=== PATIENT | male | born 1945 | race Caucasian/White ===

== ENCOUNTER → 2017-10-30 | Outpatient (CLI) | payer MEDICARE, OTHER ==
[~2017-10-30] MED LIST: DIOVAN320 MG PO; HCTZ 25MG25 MG PO; LOTREL 10 MG-201 CAP PO; NORCO 325 MG-51 TAB PO; NORVASC 10MG10 MG PO; OMEGA-3 1000 MG1 CAP PO; ZYLOPRIM 300MG300 MG PO
== END ==
LOC: COL.RAD 12:13
DX: R27.0 Ataxia, unspecified (principal)

== ENCOUNTER 2018-03-09 06:54 | Day surgery (SDC) | payer MEDICARE, OTHER ==
[~2018-03-09] VITALS: Ht 175.3 cm; Wt 98.0 kg
[2018-03-09 07:45] VITALS: BP 147/88; PULSE 61; TEMP 98
[2018-03-09 08:18] LABS: BASO # 0.2 (0.0-0.2); BASO % 1.2 % (0.0-2.0); EOS # 0.3 (0.0-0.7); EOS % 1.8 % (0-4.0); GRAN # 16.4 (1.4-6.5); LYMPH # 1.6 (1.2-3.4); LYMPH % 8.1 % (20.0-51.0); MEAN CELL VOLUME 97 fl (80.0-100.0); MEAN CORPUSCULAR HGB CONC 33 g/dl (33.0-37.0); MEAN PLATELET VOLUME 11.3 fl (7.4-10.4); MONO # 0.6 (0.1-0.6); PLATELET COUNT 383 K/mm3 (130-400); RED BLOOD COUNT 6.02 M/mm3 (4.20-5.60); REDCELL DISTRIBUTION WIDTH-CV 15.3 % (11.5-14.5)
[2018-03-09 08:29] LABS: HEMATOCRIT 58.5 % (42.0-52.0); HEMOGLOBIN 19.3 g/dl (13.5-18.0); MEAN CORPUSCULAR HEMOGLOBIN 32 pg (27.0-31.0)
[2018-03-09] MEDS ORDERED: ASPIRIN E.C. 8181 MG PO (08:45)
[2018-03-09] MEDS ORDERED: HYDROXYURE500 MG/CAP PO (08:48)
[2018-03-09] MEDS ORDERED: HCTZ 25MG TAB25 MG PO (08:48)
[2018-03-09 09:45] VITALS: BP 134/75; PULSE 59
[2018-03-09 10:00] VITALS: BP 127/78; PULSE 57; TEMP 96.9
[2018-03-09 10:15] VITALS: BP 123/74; PULSE 58
[2018-03-09 13:31] VITALS: BP 120/80; PULSE 72
== END 2018-03-09 10:35 | disposition home or self-care (01) ==
LOC: SDCO 06:54
PROVIDERS: Family Medicine
DX: C94.6 Myelodysplastic disease, not elsewhere classified (principal); D45 Polycythemia vera; I10 Essential (primary) hypertension; M10.9 Gout, unspecified; Z87.442 Personal history of urinary calculi; Z80.3 Family history of malignant neoplasm of breast; Z79.899 Other long term (current) drug therapy; Z79.82 Long term (current) use of aspirin
CPT/HCPCS: J2704; J7120

== ENCOUNTER → 2018-04-06 | Outpatient (REF) ==
[~2018-04-06] MED LIST changes: +ASPIRIN E.C. 8181 MG PO; +HCTZ 25MG TAB25 MG PO; +HYDROXYURE500 MG/CAP PO
== END ==
LOC: ZLAB.WCH 16:12
DX: Z01.89 Encounter for other specified special examinations (principal)

== ENCOUNTER 2019-06-27 22:28 | Emergency (ER) | payer MEDICARE, OTHER ==
[~2019-06-27] VITALS: Ht 175.3 cm; Wt 95.5 kg
[2019-06-27 23:08] LABS: BASO # 0.1 (0.0-0.2); BASO % 1.1 % (0.0-2.0); EOS # 0.2 (0.0-0.7); EOS % 1.2 % (0-4.0); GRAN # 9.7 (1.4-6.5); GRAN % 79.2 % (42.2-75.2); HEMATOCRIT 41.1 % (42.0-52.0); HEMOGLOBIN 14.4 g/dl (13.5-18.0); LYMPH # 1.7 (1.2-3.4); LYMPH % 13.9 % (20.0-51.0); MEAN CELL VOLUME 112 fl (80.0-100.0); MEAN CORPUSCULAR HEMOGLOBIN 39 pg (27.0-31.0); MEAN CORPUSCULAR HGB CONC 35 g/dl (33.0-37.0); MEAN PLATELET VOLUME 11.5 fl (7.4-10.4); MONO # 0.5 (0.1-0.6); MONO % 4.1 % (1.7-9.3); PLATELET COUNT 191 K/mm3 (130-400); RED BLOOD COUNT 3.68 M/mm3 (4.20-5.60)
[2019-06-27 23:14] LABS: INR 1.1 (0.8-3.0); PROTHROMBIN TIME 12.5 SECONDS (9.7-12.8)
[2019-06-27 23:16] LABS: PARTIAL THROMBOPLASTIN TIME 30.4 SECONDS (26.0-37.0)
[2019-06-27 23:17] LABS: CALCIUM 9.2 mg/dL (8.4-10.2); CREATININE, serum 1.04 (0.66-1.25); POTASSIUM 3.8 mmol/L (3.4-5.0)
[2019-06-27] MEDS ORDERED: CEPHALEXIN500 M1 PO (23:48)
[2019-06-28 00:40] VITALS: BP 142/77; PULSE 80; TEMP 98.6
== END 2019-06-28 00:42 | disposition home or self-care (01) ==
LOC: COL.ER 22:28
PROVIDERS: Emergency Medicine
DX: R04.0 Epistaxis (principal); I10 Essential (primary) hypertension; D45 Polycythemia vera; Z79.82 Long term (current) use of aspirin

== ENCOUNTER 2023-06-06 05:20 | Day surgery (SDC) | payer MEDICARE, OTHER ==
[~2023-06-06] VITALS: Ht 177.8 cm; Wt 98.0 kg
[~2023-06-06 05:20] MED LIST changes: +CEPHALEXIN500 M1 PO; +Ondansetron 4 MG/2 ML VIAL IV PRN
[2023-06-06] MEDS ORDERED: DOXYCYCLINE 10100 MG PO (05:49)
[2023-06-06] MEDS ORDERED: MICARDIS HCT 251 TAB PO (05:50)
[2023-06-06] MEDS ORDERED: LR 1,000 ML IV SCH (06:00)
[2023-06-06 06:07] VITALS: BP 132/71; PULSE 62; TEMP 97.1
--- NOTE | 2023-06-06 06:20 | NUR ---
Pt arrived with , states bowels are WNL, VSS, BG 166; consents reveiwed and signed, no questions/concerns; PIV 22G to LH after x4 attempts, LR hanging; reviewed history/meds/allergies.
[2023-06-06] MEDS ORDERED: Glycopyrrolate 0.2 MG/ML 1 ML VIAL ONE (07:18)
[2023-06-06] MEDS ORDERED: Lidocaine PF 2% (20 MG/ML) 5 ML VIAL ONE (07:18)
[2023-06-06 07:55] VITALS: BP 123/72; PULSE 72; TEMP 97
--- NOTE | 2023-06-06 07:55 | NUR ---
The patient arrived back to [facility] from the endoscopy suite at this time. The patient appears alert and oriented and ambulated from the cart to the relciner in his room with the assistance of two nurses. Post procedure vital signs were started at this time. The patient agrees to try some apple juice at this time.
[2023-06-06 08:10] VITALS: BP 113/76; PULSE 61
--- NOTE | 2023-06-06 08:10 | NUR ---
Dr. Amador is present to discuss the findings of the procedure. The patient voices a desire to be discharged home and is going to get dressed and notify the staff when he is ready to review his discharge instructions.
--- NOTE | 2023-06-06 08:18 | NUR ---
Discharge instructions were reviewed with the patient and his at this time. They both verbalized understanding and questions were answered at this time. The patient's IV to his left hand was removed and a pressure dressing was applied to the site. The patient is dressed and ready to be escorted out.
--- NOTE | 2023-06-06 08:27 | NUR ---
The patient was escorted out via wheelchair to a private vehicle by TOM Berg. The patient's belongings and discharge paperwork were sent with him. The patient's is present to drive him home.
== END 2023-06-06 08:27 | disposition home or self-care (01) ==
LOC: SDCO 05:20
DX: Z12.11 Encounter for screening for malignant neoplasm of colon (principal); D12.0 Benign neoplasm of cecum; D12.3 Benign neoplasm of transverse colon; Z87.891 Personal history of nicotine dependence
CPT/HCPCS: J2704; J7120